=== PATIENT | male | born 1990 | race Caucasian/White ===

== ENCOUNTER 2020-05-06 01:24 | Inpatient (IN) | payer OTHER ==
[2020-05-06] VITALS (17 sets, daily range): BP systolic 123–146; BP diastolic 70–96
[~2020-05-06] VITALS: Ht 177.8 cm; Wt 77.1 kg
--- NOTE | 2020-05-06 01:37 | NUR ---
ED Nurse Note: pt ambulated into ed from home CO LRQ abdominal pain since 1200pm yesterday with 7/10 pain. Pt states that he has had this pain before but pain usually disappears on its own. Pt stated that he originally went to an urgent care for abdominal pain and was instructed to visit an ED. Pt aao x 4, ambulates with steady gait. VSS no ss of distress noted. will continue to monitor. ERMD at bedside. awaiting further orders.
--- NOTE | 2020-05-06 01:37 | Emergency Room Report ---
History of Present Illness General Chief Complaint: Abdominal Pain Source: Patient Present Illness HPI 29-year-old otherwise healthy male here with abdominal pain. Patient says earlier today he began to have periumbilical and generalized abdominal pain that has now migrated to the right lower quadrant. Is never had this before. Pain is dull in nature. Says he has felt nauseous and vomited one time earlier today. No fevers, chills, chest pain, palpitation, shortness of breath, back pain, other abdominal pain, nausea, vomiting, diarrhea, dysuria, hematuria. Allergies: Coded Allergies: No Known Allergies (Unverified , 05/06/20) COVID-19 Screening Contact w/high risk pt: No Experienced COVID-19 symptoms?: No COVID-19 Testing performed ROPEMAN: No Nursing Documentation-[facility] Past Medical History: No Stated History Review of Systems All Other Systems: negative except mentioned in HPI Physical Exam Vital Signs Date Time Temp Pulse Resp B/P (MAP) Pulse Ox O2 Delivery O2 Flow Rate FiO2 05/06/20 01:27 98.2 110 22 146/96 (113) 96 Room Air Sp02 EP Interpretation: reviewed, normal General Appearance: no apparent distress, alert, GCS 15, non-toxic Head: normocephalic, atraumatic Eyes: bilateral eye normal inspection, bilateral eye PERRL ENT: hearing grossly normal, normal pharynx, no angioedema, normal voice Neck: full range of motion, supple/symm/no masses Respiratory: chest non-tender, lungs clear, normal breath sounds, speaking full sentences Cardiovascular #1: regular rate, rhythm, no edema Cardiovascular #2: 2+ carotid (R), 2+ carotid (L), 2+ radial (R), 2+ radial (L) , 2+ dorsalis pedis (R), 2+ dorsalis pedis (L) Gastrointestinal: normal bowel sounds, soft, non-distended, no rebound, other - Positive Rovsing sign. Negative Ambrosio sign. Right lower quadrant tenderness on palpation with guarding. No rebound tenderness. Non-peritoneal Rectal: deferred Genitourinary: normal inspection, no CVA tenderness Musculoskeletal: back normal, normal range of motion, calf tenderness, gait/ station normal, non-tender Neurologic: alert, motor strength/tone normal, oriented x3, sensory intact, responsive, speech normal Psychiatric: judgement/insight normal, memory normal, mood/affect normal, no suicidal/homicidal ideation Reflexes: 3+ bicep (R), 3+ bicep (L), 3+ tricep (R), 3+ tricep (L), 3+ knee (R) , 3+ knee (L) Lymphatic: no adenopathy Medical Decision Making Diagnostic Impression: Primary Impression: Appendicitis ER Course Laboratory Tests Test 05/06/20 01:55 White Blood Count 20.1 K/UL (4.8-10.8) H Red Blood Count 5.76 M/UL (4.70-6.10) Hemoglobin 17.7 G/DL (14.2-18.0) Hematocrit 50.6 % (42.0-52.0) Mean Corpuscular Volume 88 FL (80-99) Mean Corpuscular Hemoglobin 30.7 PG (27.0-31.0) Mean Corpuscular Hemoglobin Concent 34.9 G/DL (32.0-36.0) Red Cell Distribution Width 11.4 % (11.6-14.8) L Platelet Count 371 K/UL (150-450) Mean Platelet Volume 6.7 FL (6.5-10.1) Neutrophils (%) (Auto) % (45.0-75.0) Lymphocytes (%) (Auto) % (20.0-45.0) Monocytes (%) (Auto) % (1.0-10.0) Eosinophils (%) (Auto) % (0.0-3.0) Basophils (%) (Auto) % (0.0-2.0) Differential Total Cells Counted 100 Neutrophils % (Manual) 78 % (45-75) H Lymphocytes % (Manual) 11 % (20-45) L Monocytes % (Manual) 9 % (1-10) Eosinophils % (Manual) 1 % (0-3) Basophils % (Manual) 1 % (0-2) Band Neutrophils 0 % (0-8) Platelet Estimate Adequate Platelet Morphology Normal Urine Color Brown Urine Appearance Clear Urine pH 5 (4.5-8.0) Urine Specific [place] 1.030 (1.005-1.035) Urine Protein 1+ (NEGATIVE) H Urine Glucose (UA) Negative (NEGATIVE) Urine Ketones 4+ (NEGATIVE) H Urine Blood Negative (NEGATIVE) Urine Nitrite Negative (NEGATIVE) Urine Bilirubin Negative (NEGATIVE) Urine Urobilinogen Normal MG/DL (0.0-1.0) Urine Leukocyte Esterase Negative (NEGATIVE) Urine RBC 0-2 /HPF (0 - 0) H Urine WBC 2-4 /HPF (0 - 0) Urine Squamous Epithelial Cells Occasional /LPF Urine Amorphous Sediment Few /LPF (NONE) H Urine Bacteria Moderate /HPF (NONE) H Urine Mucus Moderate /LPF (NONE/OCC) H Sodium Level 136 MMOL/L (136-145) Potassium Level 3.4 MMOL/L (3.5-5.1) L Chloride Level 97 MMOL/L (98-107) L Carbon Dioxide Level 24 MMOL/L (21-32) Anion Gap 15 mmol/L (5-15) Blood Urea Nitrogen 14 mg/dL (7-18) Creatinine 1.5 MG/DL (0.55-1.30) H Estimated Glomerular Filtration Rate 55.0 mL/min (>60) Glucose Level 157 MG/DL (74-106) H Calcium Level 9.6 MG/DL (8.5-10.1) Total Bilirubin 1.9 MG/DL (0.2-1.0) H Direct Bilirubin 0.3 MG/DL (0.0-0.3) Aspartate Amino Transferase (AST) 25 U/L (15-37) Alanine Aminotransferase (ALT) 90 U/L (12-78) H Alkaline Phosphatase 117 U/L (46-116) H Total Protein 9.0 G/DL (6.4-8.2) H Albumin 4.6 G/DL (3.4-5.0) Globulin 4.4 g/dL Albumin/Globulin Ratio 1.0 (1.0-2.7) Lipase 98 U/L (73-393) CT abdomen pelvis: Acute appendicitis of perforation or abscess 29-year-old male here with abdominal pain. CBC revealed a leukocytosis of 20, 000. CMP showed mildly elevated creatinine and was otherwise unremarkable. Patient had a CT abdomen pelvis with IV contrast performed which showed acute appendicitis. He received Zosyn and several doses of pain medications in the emergency department. There was no evidence of any complication such as abscess or perforation. I spoke with the on-call surgeon who said he will take the patient to the operating room later this morning. I expressed this information the patient who expressed understanding. He was afebrile and had otherwise normal vital signs in the emergency department. Patient admitted to [facility] [place] in stable condition. Last Vital Signs Date Time Temp Pulse Resp B/P (MAP) Pulse Ox O2 Delivery O2 Flow Rate FiO2 05/06/20 01:27 98.2 110 22 146/96 (113) 96 Room Air Scripts No Active Prescriptions or Reported Meds Bob Rojo M.D. May 06, 2020 01:37
[2020-05-06] MEDS ORDERED: Morphine Sulfate 4mg/ml Inj (IV USE ONLY) IVP ONE ×2 (02:00→04:15)
[2020-05-06] MEDS ORDERED: Omnipaque-300 100ml vial INJ PRN (02:00)
[2020-05-06 02:16] LABS: APPEARANCE,URINE CLEAR; BILIRUBIN, URINE NEGATIVE (NEGATIVE); COLOR,URINE BROWN; GLUCOSE, URINE (UA) NEGATIVE (NEGATIVE); KETONES,URINE 4+ (NEGATIVE); LEUKOCYTE ESTERASE ,URINE NEGATIVE (NEGATIVE); NITRITE,URINE NEGATIVE (NEGATIVE); PH,URINE 5 (4.5-8.0); PROTEIN,URINE 1+ (NEGATIVE); UROBILINOGEN,URINE NORMAL MG/DL (0.0-1.0)
--- NOTE | 2020-05-06 02:17 | NUR ---
ED Nurse Note: all medications administered, pt tolerated well no ss of distress noted. will continue to monitor.
[2020-05-06 02:21] LABS: HEMATOCRIT 50.6 % (42.0-52.0); HEMOGLOBIN 17.7 G/DL (14.2-18.0); MEAN CORPUSCULAR VOLUME 88 FL (80-99); PLATELET COUNT 371 K/UL (150-450); RED BLOOD COUNT 5.76 M/UL (4.70-6.10); RED CELL DISTRIBUTION WIDTH 11.4 % (11.6-14.8); WHITE BLOOD COUNT 20.1 K/UL (4.8-10.8)
[2020-05-06 02:28] LABS: ANION GAP 15 mmol/L (5-15); BLOOD UREA NITROGEN 14 mg/dL (7-18); CALCIUM 9.6 MG/DL (8.5-10.1); CARBON DIOXIDE 24 MMOL/L (21-32); CHLORIDE 97 MMOL/L (98-107); CREATININE 1.5 MG/DL (0.55-1.30); POTASSIUM 3.4 MMOL/L (3.5-5.1); SODIUM 136 MMOL/L (136-145)
[2020-05-06 02:38] LABS: ALANINE AMINOTRANSFERASE 90 U/L (12-78); ALBUMIN 4.6 G/DL (3.4-5.0); ALKALINE PHOSPHATASE 117 U/L (46-116); ASPARTATE AMINO TRANSFERASE 25 U/L (15-37); BILIRUBIN,TOTAL 1.9 MG/DL (0.2-1.0)
[2020-05-06 02:39] LABS: BILIRUBIN,DIRECT 0.3 MG/DL (0.0-0.3)
[2020-05-06] MEDS ORDERED: Piperacillin/Tazobactam 3.375 GM in NS 110 ML IVPB ONE (02:45)
[2020-05-06] MEDS ORDERED: Zosyn 3.375gm inj ONE (03:12)
--- NOTE | 2020-05-06 03:17 | NUR ---
ED Nurse Note: Pt returned frmo CT in stable condition, VSS No ss of distress noted. will continue to monitor.
--- NOTE | 2020-05-06 03:58 | Diagnostic Imaging Report ---
EXAM: CT Abdomen and Pelvis With Intravenous Contrast CLINICAL HISTORY: PAIN TECHNIQUE: Axial computed tomography images of the abdomen and pelvis with intravenous contrast. CTDI is 6.00 mGy and DLP is 326.40 mGy-cm. One or more of the following dose reduction techniques were used: automated exposure control, adjustment of the mA and/or kV according to patient size, use of iterative reconstruction technique. Coronal and sagittal reformatted images were created and reviewed. COMPARISON: No relevant prior studies available. FINDINGS: Lung bases: Unremarkable. No mass. No consolidation. Mediastinum: Small hiatal hernia. ABDOMEN: Liver: Extensive hypoattenuation of the liver with some areas of relative sparing. Overall findings suggest fatty infiltration. Gallbladder and bile ducts: Unremarkable. No calcified stones. No ductal dilation. Pancreas: Unremarkable. No mass. No ductal dilation. Spleen: Unremarkable. No splenomegaly. Adrenals: Unremarkable. No mass. Kidneys and ureters: Right renal 14 mm cyst with few faint septations. No hydronephrosis. Stomach and bowel: Unremarkable. No obstruction. No mucosal thickening. PELVIS: Appendix: The appendix is enlarged measuring up to 10.5 mm in diameter with surrounding inflammatory changes consistent with acute appendicitis. No evidence of abscess or extraluminal air. Bladder: Unremarkable. No mass. Reproductive: Unremarkable as visualized. ABDOMEN and PELVIS: Intraperitoneal space: See above. Small amount of free fluid. Bones/joints: No acute fracture. No dislocation. Soft tissues: Periumbilical fat-containing hernia. Vasculature: Unremarkable. No abdominal aortic aneurysm. Lymph nodes: Unremarkable. No enlarged lymph nodes. IMPRESSION: 1. The appendix is enlarged measuring up to 10.5 mm in diameter with surrounding inflammatory changes consistent with acute appendicitis. No evidence of abscess or actual air. 2. Right renal 14 mm cyst with few faint septations. No follow up necessary. 3. Extensive hypoattenuation of the liver with some areas of relative sparing. Overall findings suggest fatty infiltration. <MYCVCSECTION> Communications: 05/06/20 04:01 Call Doctor Regarding Appendicitis, called Dr. Bob Rojo on 05/06 04:01 (-07:00)
--- NOTE | 2020-05-06 05:13 | NUR ---
ED Nurse Note: pt resting in bed, VSS no ss of distress noted. will continue to monitor.
--- NOTE | 2020-05-06 06:47 | NUR ---
ED Nurse Note: Report given to FAB Salazar on MS unit.
--- NOTE | 2020-05-06 07:11 | NUR ---
ER DISCHARGE NOTE: Patient is cleared to be discharged to MS unit per ERMD, pt is aox4, 100% on room air, with stable vital signs. pt was able to verbalize understanding. pt is able to ambulate with steady gait. pt took all belongings. Report given to FAB Salazar on MS unit. Pt transferred to unit with 1 AXLE POLISHER.
[2020-05-06] MEDS ORDERED: Milk of Magnesia 30ml Ud ORAL PRN ×2 (07:30→11:15)
[2020-05-06] MEDS ORDERED: Morphine Sulfate 2mg/ml Inj(IV/IM USE ONLY) IVP PRN (07:30)
[2020-05-06] MEDS ORDERED: Morphine Sulfate 4mg/ml Inj (IV USE ONLY) IVP PRN ×2 (07:30→13:15)
[2020-05-06] MEDS ORDERED: Mylanta II UD 30ml ORAL PRN (07:30)
--- NOTE | 2020-05-06 07:30 | Pre-Procedure Note/Attestation ---
Pre-Procedure Note/Attestation Complete Prior to Procedure Procedure Narrative: laparoscopic appendectomy Indications for Procedure Pre-Operative Diagnosis: acute appendicitis Attestation I attest that I discussed the nature of the procedure; its benefits; risks and complications; and alternatives (and the risks and benefits of such alternatives ), prior to the procedure, with the patient (or the patient's legal customer assistance representative). I attest that, if there was a reasonable possibility of needing a blood transfusion, the patient (or the patient's legal customer assistance representative) was given the [facility] standardized written summary, pursuant to the [place] Blood Safety Act ([place] Health and Safety Code # 1645, as amended). I attest that I re-evaluated the patient just prior to the surgery and that there has been no change in the patient's H&P, except as documented below: Maroi Conti May 06, 2020 07:30
--- NOTE | 2020-05-06 07:31 | Consultation ---
History of Present Illness General Date patient seen: May 06, 2020 Reason for Hospitalization: Abdominal Pain Present Illness HPI This is a very pleasant 29-year-old male otherwise healthy that presents [facility] complaining of worsening abdominal pain. Patient states that yesterday afternoon he began to have right lower quadrant abdominal discomfort. Throughout the day pain worsened. In the evening he went to an urgent care at which time was potentially diagnosed with appendicitis and told to go to the hospital for evaluation. He came to [facility] and was identified to have a leukocytosis and CT scan consistent with acute appendicitis. Patient is admitted further care and management. Surgery was called to evaluate and assist with care. Patient seen, patient evaluated, chart reviewed. Pain 6 out of 10 without radiation lower abdomen right lower quadrant. Currently no nausea vomiting fever chills. Allergies: Coded Allergies: No Known Allergies (Unverified , 05/06/20) COVID-19 Screening Contact w/high risk pt: No Experienced COVID-19 symptoms?: No Medication History No Active Prescriptions or Reported Meds Patient History History Provided By: Patient Healthcare decision maker Resuscitation status Advanced Directive on File Past Medical/Surgical History Past Medical/Surgical History: (1) Appendicitis Review of Systems Review of Symptoms General ROS: no weight loss or fever Psychological ROS: no depression or mood changes, no memory loss Ophthalmic ROS: no visual changes or eye irritation ENT ROS: no nasal congestion, hearing loss, dizziness Allergy and Immunology ROS: no allergic symptoms or urticaria Hematological and Lymphatic ROS: no swollen glands, unusual bleeding or bruising Endocrine ROS: no polyuria, polydipsia, weight changes, temperature intolerance Respiratory ROS: no cough, shortness of breath, or wheezing Cardiovascular ROS: no chest pain or dyspnea on exertion Gastrointestinal ROS: ++ abdominal pain, no bright red blood in stool. Musculoskeletal ROS: no myalgias or arthralgias Neurological ROS: no TIA or stroke symptoms Dermatological ROS: no new or changing skin lesions, rashes or pruritis Physical Exam Physical Exam General appearance: alert, cooperative, no distress, appears stated age Head: Normocephalic, without obvious abnormality, atraumatic Eyes: conjunctivae/corneas clear. PERRL, EOM's intact. Fundi benign Throat: Lips, mucosa, and tongue normal. Teeth and gums normal Neck: supple, symmetrical, trachea midline, no adenopathy, thyroid: not enlarged, symmetric, no tenderness/mass/nodules, no carotid bruit and no JVD Lungs: clear to auscultation bilaterally Heart: regular rate and rhythm, S1, S2 normal, no murmur, click, rub or gallop Abdomen: soft, ++tender. Bowel sounds normal. No masses, no organomegaly Extremities: extremities normal, atraumatic, no cyanosis or edema Pulses: 2+ and symmetric Skin: Skin color, texture, turgor normal. No rashes or lesions Neurologic: Grossly normal Last 24 Hour Vital Signs Date Time Temp Pulse Resp B/P (MAP) Pulse Ox O2 Delivery O2 Flow Rate FiO2 05/06/20 07:11 98.3 85 16 141/82 100 Room Air 05/06/20 05:55 98.3 81 16 144/79 99 Room Air 05/06/20 04:41 98.3 05/06/20 03:25 98.3 79 16 145/86 98 Room Air 05/06/20 02:35 98.3 05/06/20 01:37 98.2 110 22 146/96 96 Room Air 05/06/20 01:37 110 22 Room Air 05/06/20 01:27 98.2 110 22 146/96 (113) 96 Room Air Intake and Output 05/05/20 05/06/20 19:00 07:00 Intake Total 1600 ml Output Total 700 ml Balance 900 ml Intake IV Total 1600 ml Output Urine Total 700 ml # Voids 2 Laboratory Tests Test 05/06/20 01:55 White Blood Count 20.1 K/UL (4.8-10.8) H Red Blood Count 5.76 M/UL (4.70-6.10) Hemoglobin 17.7 G/DL (14.2-18.0) Hematocrit 50.6 % (42.0-52.0) Mean Corpuscular Volume 88 FL (80-99) Mean Corpuscular Hemoglobin 30.7 PG (27.0-31.0) Mean Corpuscular Hemoglobin Concent 34.9 G/DL (32.0-36.0) Red Cell Distribution Width 11.4 % (11.6-14.8) L Platelet Count 371 K/UL (150-450) Mean Platelet Volume 6.7 FL (6.5-10.1) Neutrophils (%) (Auto) % (45.0-75.0) Lymphocytes (%) (Auto) % (20.0-45.0) Monocytes (%) (Auto) % (1.0-10.0) Eosinophils (%) (Auto) % (0.0-3.0) Basophils (%) (Auto) % (0.0-2.0) Differential Total Cells Counted 100 Neutrophils % (Manual) 78 % (45-75) H Lymphocytes % (Manual) 11 % (20-45) L Monocytes % (Manual) 9 % (1-10) Eosinophils % (Manual) 1 % (0-3) Basophils % (Manual) 1 % (0-2) Band Neutrophils 0 % (0-8) Platelet Estimate Adequate Platelet Morphology Normal Urine Color Brown Urine Appearance Clear Urine pH 5 (4.5-8.0) Urine Specific [place] 1.030 (1.005-1.035) Urine Protein 1+ (NEGATIVE) H Urine Glucose (UA) Negative (NEGATIVE) Urine Ketones 4+ (NEGATIVE) H Urine Blood Negative (NEGATIVE) Urine Nitrite Negative (NEGATIVE) Urine Bilirubin Negative (NEGATIVE) Urine Urobilinogen Normal MG/DL (0.0-1.0) Urine Leukocyte Esterase Negative (NEGATIVE) Urine RBC 0-2 /HPF (0 - 0) H Urine WBC 2-4 /HPF (0 - 0) Urine Squamous Epithelial Cells Occasional /LPF Urine Amorphous Sediment Few /LPF (NONE) H Urine Bacteria Moderate /HPF (NONE) H Urine Mucus Moderate /LPF (NONE/OCC) H Sodium Level 136 MMOL/L (136-145) Potassium Level 3.4 MMOL/L (3.5-5.1) L Chloride Level 97 MMOL/L (98-107) L Carbon Dioxide Level 24 MMOL/L (21-32) Anion Gap 15 mmol/L (5-15) Blood Urea Nitrogen 14 mg/dL (7-18) Creatinine 1.5 MG/DL (0.55-1.30) H Estimat Glomerular Filtration Rate 55.0 mL/min (>60) Glucose Level 157 MG/DL (74-106) H Calcium Level 9.6 MG/DL (8.5-10.1) Total Bilirubin 1.9 MG/DL (0.2-1.0) H Direct Bilirubin 0.3 MG/DL (0.0-0.3) Aspartate Amino Transf (AST/SGOT) 25 U/L (15-37) Alanine Aminotransferase (ALT/SGPT) 90 U/L (12-78) H Alkaline Phosphatase 117 U/L (46-116) H Total Protein 9.0 G/DL (6.4-8.2) H Albumin 4.6 G/DL (3.4-5.0) Globulin 4.4 g/dL Albumin/Globulin Ratio 1.0 (1.0-2.7) Lipase 98 U/L (73-393) Height (Feet): 5 Height (Inches): 10.00 Weight (Pounds): 170 Medications Current Medications Medications (Trade) Dose Ordered Sig/Yelitza Route PRN Reason Start Time Stop Time Status Last Admin Dose Admin Barium Sulfate (Readi-Cat 2) 450 ml NOW PRN ORAL Radiology Procedure 05/06/20 02:00 05/08/20 01:52 Iohexol (OMNIPAQUE-300 100ml) 100 ml NOW PRN INJ Radiology Procedure 05/06/20 02:00 05/08/20 01:52 Assessment/Plan Problem List: (1) Appendicitis Assessment & Plan: 29M acute appendicitis afebrile HD stable leukocytosis exam with focal RLQ tenderness also noted incarcerated ventral umbilical hernia Care plan was discussed patient in detail at bedside. Recommend lap appendectomy possible open. Will repair incarcerated ventral hernia at the same time. Patient expressed understanding. Consent obtained. npo iv fluids abx consent or today ABDOMEN: Liver: Extensive hypoattenuation of the liver with some areas of relative sparing. Overall findings suggest fatty infiltration. Gallbladder and bile ducts: Unremarkable. No calcified stones. No ductal dilation. Pancreas: Unremarkable. No mass. No ductal dilation. Spleen: Unremarkable. No splenomegaly. Adrenals: Unremarkable. No mass. Kidneys and ureters: Right renal 14 mm cyst with few faint septations. No hydronephrosis. Stomach and bowel: Unremarkable. No obstruction. No mucosal thickening. PELVIS: Appendix: The appendix is enlarged measuring up to 10.5 mm in diameter with surrounding inflammatory changes consistent with acute appendicitis. No evidence of abscess or extraluminal air. Bladder: Unremarkable. No mass. Reproductive: Unremarkable as visualized. ABDOMEN and PELVIS: Intraperitoneal space: See above. Small amount of free fluid. Bones/joints: No acute fracture. No dislocation. Soft tissues: Periumbilical fat-containing hernia. Vasculature: Unremarkable. No abdominal aortic aneurysm. Lymph nodes: Unremarkable. No enlarged lymph nodes. IMPRESSION: 1. The appendix is enlarged measuring up to 10.5 mm in diameter with surrounding inflammatory changes consistent with acute appendicitis. No evidence of abscess or actual air. 2. Right renal 14 mm cyst with few faint septations. No follow up necessary. 3. Extensive hypoattenuation of the liver with some areas of relative sparing. Overall findings suggest fatty infiltration. ICD Codes: K37 - Unspecified appendicitis SNOMED: [id number] Mario Conti May 06, 2020 07:31
--- NOTE | 2020-05-06 07:40 | NUR ---
NURSE NOTES: Patient is in bed awake and able to verbalize needs. Stable. Breathing is even and unlabored. No visible signs of distress noted. Patient instructed to use call light for assistance, verbalized understanding. All safety measures provided. Will continue to monitor.
[2020-05-06] MEDS ORDERED: LR 1000ml 1,000 ML IVLG SCH (08:58)
[2020-05-06] MEDS ORDERED: oxyCODONE HCL/Acetaminophen 5/325mg ORAL PRN (09:00)
[2020-05-06] MEDS ORDERED: LORazepam Inj 2mg/ml 1ml IV PRN (09:00)
[2020-05-06] MEDS ORDERED: Hydromorphone 0.5mg/0.5ml inj IVP PRN (09:00)
[2020-05-06] MEDS ORDERED: fentaNYL 100 mcg/2 mL IV PRN (09:00)
[2020-05-06] MEDS ORDERED: Atropine Sulfate 0.4mg/ml inj IVP PRN (09:00)
[2020-05-06] MEDS ORDERED: Midazolam 2mg/2ml Inj IVP PRN (09:00)
[2020-05-06] MEDS ORDERED: Docusate 100mg cap ORAL SCH (09:00)
[2020-05-06] MEDS ORDERED: HYDROcodone/Acetamin 7.5/325 tab ORAL PRN (09:00)
[2020-05-06] MEDS ORDERED: Labetalol 5mg/ml 20ml vial IV PRN (09:00)
[2020-05-06] MEDS ORDERED: HYDROcodone/Acetamin 5/325 tab ORAL PRN ×2 (09:00→11:15)
[2020-05-06] MEDS ORDERED: Ketorolac 30mg Inj IV PRN ×2 (09:00)
[2020-05-06] MEDS ORDERED: DiphenhydrAMINE 50mg/ml Inj IVP PRN (09:00)
[2020-05-06] MEDS ORDERED: Metoclopramide 10mg/2ml Inj IVP PRN (09:00)
[2020-05-06] MEDS ORDERED: Meperidine 25mg/0.5ml Inj (FOR RIGORS ONLY) IV PRN (09:00)
--- NOTE | 2020-05-06 09:06 | Anethesia Preoperative Eval ---
Anesthesia Pre-op PMH/ROS General Date of Evaluation: May 06, 2020 Time of Evaluation: 09:36 Anesthesiologist: Essence ASA Score: ASA 2 - Emergency Mallampati Score Class I : Soft palate, uvula, fauces, pillars visible Class II: Soft palate, uvula, fauces visible Class III: Soft palate, base of uvula visible Class IV: Only hard plate visible Mallampati Classification: Class I Surgeon: Sushila Diagnosis: Acute Appendicitis Surgical Procedure: Laparoscopic Appendectomy Anesthesia History: none Family History: no anesthesia problems Allergies: Coded Allergies: No Known Allergies (Unverified , 05/06/20) Medications: see eMAR Patient NPO?: Yes Past Medical History Cardiovascular: Reports: HTN Gastrointestinal/Genitourinary: Reports: other - Acute Appendicitis Anesthesia Pre-op Phys. Exam Physician Exam Last Vital Signs Date Time Temp Pulse Resp B/P (MAP) Pulse Ox O2 Delivery O2 Flow Rate FiO2 05/06/20 07:43 Room Air 05/06/20 07:11 98.3 85 16 141/82 100 Constitutional: NAD Neurologic: CN 2-12 intact Cardiovascular: RRR Respiratory: CTA Gastrointestinal: S/NT/ND Airway Exam Mallampati Score: Class I MO: full ROM: full Teeth: missing, intact Anesthesia Pre-op A/P Labs Hematology Test 05/06/20 01:55 White Blood Count 20.1 K/UL (4.8-10.8) H Red Blood Count 5.76 M/UL (4.70-6.10) Hemoglobin 17.7 G/DL (14.2-18.0) Hematocrit 50.6 % (42.0-52.0) Mean Corpuscular Volume 88 FL (80-99) Mean Corpuscular Hemoglobin 30.7 PG (27.0-31.0) Mean Corpuscular Hemoglobin Concent 34.9 G/DL (32.0-36.0) Red Cell Distribution Width 11.4 % (11.6-14.8) L Platelet Count 371 K/UL (150-450) Mean Platelet Volume 6.7 FL (6.5-10.1) Neutrophils (%) (Auto) % (45.0-75.0) Lymphocytes (%) (Auto) % (20.0-45.0) Monocytes (%) (Auto) % (1.0-10.0) Eosinophils (%) (Auto) % (0.0-3.0) Basophils (%) (Auto) % (0.0-2.0) Differential Total Cells Counted 100 Neutrophils % (Manual) 78 % (45-75) H Lymphocytes % (Manual) 11 % (20-45) L Monocytes % (Manual) 9 % (1-10) Eosinophils % (Manual) 1 % (0-3) Basophils % (Manual) 1 % (0-2) Band Neutrophils 0 % (0-8) Platelet Estimate Adequate Platelet Morphology Normal Coagulation Test 05/06/20 08:50 Prothrombin Time Pending Prothromb Time International Ratio Pending Activated Partial Thromboplast Time Pending Chemistry Test 05/06/20 01:55 Sodium Level 136 MMOL/L (136-145) Potassium Level 3.4 MMOL/L (3.5-5.1) L Chloride Level 97 MMOL/L (98-107) L Carbon Dioxide Level 24 MMOL/L (21-32) Anion Gap 15 mmol/L (5-15) Blood Urea Nitrogen 14 mg/dL (7-18) Creatinine 1.5 MG/DL (0.55-1.30) H Estimat Glomerular Filtration Rate 55.0 mL/min (>60) Glucose Level 157 MG/DL (74-106) H Calcium Level 9.6 MG/DL (8.5-10.1) Total Bilirubin 1.9 MG/DL (0.2-1.0) H Direct Bilirubin 0.3 MG/DL (0.0-0.3) Aspartate Amino Transf (AST/SGOT) 25 U/L (15-37) Alanine Aminotransferase (ALT/SGPT) 90 U/L (12-78) H Alkaline Phosphatase 117 U/L (46-116) H Total Protein 9.0 G/DL (6.4-8.2) H Albumin 4.6 G/DL (3.4-5.0) Globulin 4.4 g/dL Albumin/Globulin Ratio 1.0 (1.0-2.7) Lipase 98 U/L (73-393) Risk Assessment & Plan Assessment: ASA 2E Plan: GA, SED, GlideScope Status Change Before Surgery: No Pre-Antibiotics Dru Gram Ancef IV Given Within 1 Hr of Incision: Yes Time Given: 10:01 Celestine Lowry MD May 06, 2020 09:06
[2020-05-06] MEDS ORDERED: Acetaminophen (Non formulary) 100 ML IV ONE (09:15)
--- NOTE | 2020-05-06 09:18 | Immediate Post-Op Evaluation ---
Immediate Post-Op Evalulation Immediate Post-Op Evalulation Procedure: Laparoscopic Appendectomy Date of Evaluation: May 06, 2020 Time of Evaluation: 11:19 IV Fluids: 800 LR Blood Products: 0 Estimated Blood Loss: 15 Urinary Output: 0 Blood Pressure Systolic: 138 Blood Pressure Diastolic: 70 Pulse Rate: 77 Respiratory Rate: 16 O2 Sat by Pulse Oximetry: 100 Temperature (Fahrenheit): 98.1 Pain Score (1-10): 2 Nausea: No Vomiting: No Complications 0 Patient Status: awake, reacts, patent, extubated, none Hydration Status: adequate Dru Gram Ancef IV Given Within 1 Hr of Incision: Yes Time Given: 10:01 Celestine Lowry MD May 06, 2020 09:18
--- NOTE | 2020-05-06 09:23 | 48 Hour Post Anesthesia Eval ---
Post Anesthesia Evaluation Procedure: Laparoscopic Appendectomy Date of Evaluation: May 06, 2020 Time of Evaluation: 13:32 Blood Pressure Systolic: 141 0: 82 Pulse Rate: 83 Respiratory Rate: 18 Temperature (Fahrenheit): 98.1 O2 Sat by Pulse Oximetry: 100 Airway: patent Nausea: No Vomiting: No Pain Intensity: 2 Hydration Status: adequate Cardiopulmonary Status: Stable Mental Status/LOC: patient returned to baseline Follow-up Care/Observations: 0 Post-Anesthesia Complications: 0 Follow-up care needed: N/A Celestine Lowry MD May 06, 2020 09:23
[2020-05-06] MEDS ORDERED: Sodium Chloride 10ml vial INJ ONE (09:25)
[2020-05-06] MEDS ORDERED: Lidocaine 1% MPF 10mg/ml 5ml ONE (09:25)
[2020-05-06] MEDS ORDERED: NS Irrig 1000ml ONE (09:30)
[2020-05-06] MEDS ORDERED: Rocuronium Bromide 50mg/5ml Inj IV ONE (09:30)
[2020-05-06] MEDS ORDERED: Sterile Water Irrig 1000ml IRRIG ONE (09:30)
[2020-05-06] MEDS ORDERED: LR 1000ml ONE (09:30)
[2020-05-06] MEDS ORDERED: Neostigmine 1mg/ml 10ml Inj ONE (09:30)
--- NOTE | 2020-05-06 09:40 | NUR ---
NURSE NOTES: Patient taken downstairs. All belongings in room.
[2020-05-06] MEDS ORDERED: Glycopyrrolate 0.2mg/ml 1ml Vial ONE (10:25)
[2020-05-06] MEDS ORDERED: NS Irrig 1000ml IRRIG ONE (10:29)
[2020-05-06] MEDS ORDERED: D5 1/2NS w/KCl 20mEq 1,000 ML IV SCH (10:30)
--- NOTE | 2020-05-06 10:59 | Brief Operative Note ---
Immediate Post Operative Note Operative Note Pre-op Diagnosis: acute appendicitis Procedure: lap appy Post-op Diagnosis: same as pre-op Surgeon: subha Anesthesiologist: sarah Anesthesia: general, local Specimen: yes Complications: none Condition: stable Fluids: see records Estimated Blood Loss: minimal Implant(s) used?: No Mario Conti May 06, 2020 10:59
--- NOTE | 2020-05-06 11:00 | NUR ---
PT Note Acknowledged order for PT eval/tx. Was unable to see patient as he went for surgery.
[2020-05-06] MEDS ORDERED: HYDROcodone/Acetamin 10/325 tab ORAL PRN (11:15)
--- NOTE | 2020-05-06 12:33 | NUR ---
NURSE NOTES: Patient arrived on unit, AOx4, able to verbalize needs. Stable. Breathing is even and unlabored, on 2L oxygen via nc. No visible signs of distress noted. VSS. Patient instructed to use call light for assistance, verbalized understanding. Surgical site c/d/i. All safety measures provided. Will continue to monitor.
--- NOTE | 2020-05-06 13:30 | NUR ---
NURSE NOTES: Patient tolerated clear liquid diet and full liquid diet. No c/o n/v, abdominal pain or discomfort.
--- NOTE | 2020-05-06 14:00 | NUR ---
NURSE NOTES: Patient voided sydney urine.
--- NOTE | 2020-05-06 14:20 | History & Physical ---
History and Physical History & Physicial dictated [id number] Sagar Steele MD May 06, 2020 14:20
[2020-05-06] MEDS: Piperacillin/Tazobactam 3.375 GM in NS 110 ML IVPB SCH ×2 (15:00→21:53)
--- NOTE | 2020-05-06 15:21 | NUR ---
CASE MANAGEMENT: INITIAL REVIEW 29YR OLD MALE FROM HOME CC:ABDOMINAL PAIN SI:APPENDICITIS . ABDOMINAL PAIN 98.3 110 22 146/96 96% ON RA WBC 20.1 K+3.4 CL-97 CREAT 1.5 BG 157 T.CUCA 1.9 ALT 90 IS:IVF NS BOLUS X3 IV ZOSYN X1 IV MORPHINE X2 IV TORADOL IV D5@100ML/HR CT ABD/PEL-The appendix is enlarged measuring up to 10.5 mm in diameter with surrounding inflammatory changes consistent with acute appendicitis. No evidence of abscess or actual air. Right renal 14 mm cyst with few faint septations. No follow up necessary. Extensive hypoattenuation of the liver with some areas of relative sparing. Overall findings suggest fatty infiltration. IN SURGERY NOW ACUTE APPENDICITIS \: 3E MED SURG UNIT DCP: HOME WHEN STABLE PLAN: ADVANCE DIET TOLERATED ENCOURAGE INCENTIVE SPIROMETER DVT PROPHYLAXIS SCD'S
--- NOTE | 2020-05-06 16:00 | Operative Note - Dictated ---
DATE OF OPERATION: 05/06/2020 PREOPERATIVE DIAGNOSES: 1. Incarcerated ventral umbilical hernia. 2. Acute appendicitis. POSTOPERATIVE DIAGNOSES: 1. Incarcerated ventral umbilical hernia. 2. Acute appendicitis. OPERATION PERFORMED: 1. Laparoscopic appendectomy. 2. Open repair of incarcerated ventral hernia. ATTENDING SURGEON: Mario Conti MD. LENS ASSISTANT: None. ANESTHESIOLOGIST: Celestine Lowry MD. 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 ESTIMATED BLOOD LOSS: Minimal. IV FLUIDS: Please see anesthesia records. COMPLICATIONS: None. DRAINS: None. COUNTS: Sponge and needle counts were correct x2. WOUND CLASSIFICATION: Class 3. SPECIMENS: 1. Ventral umbilical hernia sac contents. 2. Appendix. ANTIBIOTICS: The patient given Zosyn IV one hour prior to seen in the emergency department. INDICATIONS FOR PROCEDURE: This is a very pleasant 29-year-old male, who presented to, he then began to develop abdominal pain, a day prior to admission, which was worsening, went to Urgent Care and diagnosed with acute appendicitis and came to the emergency department at [facility] for [facility] evaluation. CT scan consistent with appendicitis as well as leukocytosis and abdominal examination with localized right lower quadrant peritonitis. On examination, the patient was also identified to have a bulge in his supraumbilical area ventral. On palpation, this was identified to be a hernia with incarcerated contents that could not be reduced. Given planned laparoscopic surgery and port site utilization for minimization of scar, care plan was to place port in the umbilicus and given his incarcerated hernia that would need to be reduced and repaired. The patient expressed understanding. Consent was obtained. OPERATIVE NOTE: The patient was taken to the operating room and placed on the operating table in supine position with bilateral arms out. All bony prominences were well padded. SCDs placed. Preoperative time-out taken to identify the patient, procedure, operative staff, and surgical staff. The patient has already given IV antibiotics prior to entering the operating room. No Dubon catheter was inserted given the patient voided prior. General anesthesia was induced. The patient was intubated. The left arm was tucked. All bony prominences were well padded. Abdomen was clipped, prepped, and draped in the standard surgical fashion. The supraumbilical incarcerated ventral hernia was identified and the port site was planned for this location. Therefore, the umbilical incision was made and once this was identified, incarcerated fat was noted. The incarcerated fat was dissected out to the fascia where the small ventral umbilical hernia was identified. The fatty contents and sac were divided and sent to pathology for review. The fascial edges were clearly identified, freshened up and the fascia was extended to allow a 12 mm port. A 12 mm Heather trocar was inserted under direct visualization without complication. Entry of the abdomen was without complication. The abdomen was insufflated to 12 to 15 mmHg. Laparoscope was inserted. The abdomen was inspected. No injury from initial trocar placement noted. Secondary trocars placed under direct visualization beginning with a 12 mm left lower quadrant followed by 5 mm suprapubic. The abdomen was inspected. The liver was without significant abnormalities, but did have blunted edges little fatty. The portions of the colon, intestines identified, were otherwise normal as well as the stomach. No inguinal hernias were identified. There was some adhesions of the sigmoid colon to the left lower quadrant peritoneum. Laparoscopic grasper was used and the cecum was identified and followed to the where the base of the appendix noted. The appendix was inflamed, but not perforated. The appendix was dissected out and a window was made between the base of the appendix and mesoappendix. The mesoappendix was divided without complication. Staple line was required two clips for hemostasis. Mesoappendix was identified and divided using a laparoscopic linear stapler in similar fashion. Laparoscopic clips were used for hemostasis was necessary. The appendix placed in endoscopic retrieval bag and removed from the umbilical port site. The pelvis and right lower quadrant had some murky, serous fluid, which was evacuated, irrigated and suctioned out. Good hemostasis noted from the appendiceal base and mesoappendix at the end of the procedure. No bleeding identified. Intact without complication with the staple lines. At this time, we began the conclusion of our procedure. The left lower quadrant and umbilical and suprapubic trocars were removed. The abdomen was desufflated. The umbilical trocar site was removed. The umbilical trocar site fascia with edges were freshened up and the hernia had been in the hernia sac and contents were ligated and divided, was reapproximated using [id number] #0 Vicryl sutures. The left lower quadrant port site fascia was reapproximated using [id number] #0 Vicryl sutures. Skin incisions were approximated using 4-0 Monocryl subcuticular interrupted sutures. Skin glue and Steri-Strips were applied. The patient tolerated the procedure well, was extubated, taken to postanesthetic care in stable condition. Of note, local anesthetic was used throughout the procedure, incision site and port sites for the patient's comfort. Mario Conti M.D. DR: SINDHU JOB#: [id number] CC:
[2020-05-06] MEDS: Docusate 100mg cap ORAL SCH (18:17)
[2020-05-06] MEDS: Morphine Sulfate 2mg/ml Inj(IV/IM USE ONLY) IVP PRN (18:18)
--- NOTE | 2020-05-06 19:30 | NUR ---
NURSE NOTES: Receive a report from FAB Garza. Round is done. Pt is awake and alert. No acute distress noted. Surgical sites are clean. I/S at bed side. Encourage to use I/S every hour for post-op complications. Call light within reach. Will continue to monitor.
--- NOTE | 2020-05-06 19:30 | History and Physical Report ---
DATE OF ADMISSION: 05/06/2020 CHIEF COMPLAINT: Abdominal pain. HISTORY OF PRESENT ILLNESS: This is a very pleasant 29-year-old white male who was in his usual state of health until yesterday when he started to have first some epigastric pain, which then travelled to the right lower quadrant. It became severe and finally came to the emergency room. The CT scan showed that he had acute appendicitis. The patient was admitted for further care. He just had appendectomy by Dr. Conti this morning and he is postop now. PAST MEDICAL HISTORY: Unremarkable. No history of diabetes, hypertension. No history of heart problems. MEDICATIONS: None. SOCIAL HISTORY: No history of smoking or alcohol abuse. The patient lives at home by himself. ALLERGIES: No known drug allergies. REVIEW OF SYSTEMS: Noncontributory, except above. PHYSICAL EXAMINATION: GENERAL: The patient is a pleasant male, in no acute distress. VITAL SIGNS: Blood pressure is 136/87, pulse 89, respirations 18, and temperature 98.4. HEENT: Mayo conjunctivae. Anicteric sclerae. NECK: Supple. LUNGS: Clear to auscultation. HEART: S1, S2 without murmurs or rubs. ABDOMEN: Soft, somewhat tender around the surgical site. EXTREMITIES: No cyanosis or edema. LABORATORY FINDINGS: [place] [address], hematocrit 50.6, hemoglobin 17.7, and platelets 271,000. Chemistry panel shows sodium 136, potassium 3.4, chloride 97, carbon dioxide 24, BUN is 14, creatinine 1.5. UA showed moderate bacteria, but only 2 to 4 WBCs per high-power field. ASSESSMENT: This is a 29-year-old white male was admitted with acute appendicitis. He just had his appendectomy this morning. He is doing well. He was started on some liquid diet by Dr. Conti. PLAN: The patient is already on Zosyn, which we will continue. His diet will be advanced per Dr. Conti, possibly discharged in a day or 2. Sagar Steele M.D. DR: Kirill JOB#: [id number] CC:
--- NOTE | 2020-05-06 19:34 | NUR ---
NURSE HAND-OFF: Important Events on Shift:s/p surgery Patient Status: stable Diet: regular Pending Orders: n/a Pending Results/Labs:n/a Pending MD notification:n/a Latest Vital Signs: Temperature 98.4 , Pulse 95 , B/P 137 /89 , Respiratory Rate 21 , O2 SAT 99 , Nasal Cannula, O2 Flow Rate 3 . Vital Sign Comment: n/a Latest Andrews Fall Score: 50 Fall Risk: High Risk Safety Measures: Call light Within Reach, Side Rails Side Rails x2, Bed position Low and Locked. Fall Precautions: Report given to Denisa SANON.
[2020-05-07] VITALS: BP 135/73
[2020-05-07] MEDS: Morphine Sulfate 2mg/ml Inj(IV/IM USE ONLY) IVP PRN (00:04)
--- NOTE | 2020-05-07 00:05 | NUR ---
NURSE NOTES: No acute distress noted but pain is increasing as 5/10. Given prn pain medication as ordered. Explain for S/Es. Done self-voiding at bathroom with steady gait. Will continue to monitor.
[2020-05-07 04:30] VITALS: BP 122/74
[2020-05-07] MEDS: Piperacillin/Tazobactam 3.375 GM in NS 110 ML IVPB SCH (05:54)
[2020-05-07 05:57] LABS: HEMATOCRIT 43.6 % (42.0-52.0); HEMOGLOBIN 15.1 G/DL (14.2-18.0); MEAN CORPUSCULAR VOLUME 89 FL (80-99); PLATELET COUNT 296 K/UL (150-450); RED BLOOD COUNT 4.88 M/UL (4.70-6.10); RED CELL DISTRIBUTION WIDTH 11.5 % (11.6-14.8); WHITE BLOOD COUNT 18.4 K/UL (4.8-10.8)
[2020-05-07 06:08] LABS: ANION GAP 11 mmol/L (5-15); BLOOD UREA NITROGEN 11 mg/dL (7-18); CALCIUM 8.9 MG/DL (8.5-10.1); CARBON DIOXIDE 26 MMOL/L (21-32); CHLORIDE 101 MMOL/L (98-107); CREATININE 1.2 MG/DL (0.55-1.30); POTASSIUM 4.1 MMOL/L (3.5-5.1); SODIUM 138 MMOL/L (136-145)
--- NOTE | 2020-05-07 07:30 | NUR ---
NURSE HAND-OFF: Important Events on Shift:[pain on surgical sites] Patient Status: [stable] Diet: [regular diet] Pending Orders: [] Pending Results/Labs:[] Pending MD notification:[] Latest Vital Signs: Temperature 98.1 , Pulse 75 , B/P 122 /74 , Respiratory Rate 18 , O2 SAT 98 , Room Air, O2 Flow Rate 3 . Vital Sign Comment: [] Latest Andrews Fall Score: 20 Fall Risk: Low Risk Safety Measures: Call light Within Reach, Bed Alarm , Side Rails Side Rails x2, Bed position Low and Locked. Fall Precautions: Patient Fall Education Leaving a written Report given to [FAB Garza]. Pain had one time pain medication overnight. No S/Es. Afebrile. Surgical sites are clean.
--- NOTE | 2020-05-07 07:45 | NUR ---
NURSE NOTES:REPORT GIVEN BY NIGHT RN(LAYLA).PT.EATING BREAKFAST ON ROUNDS,IN GOOD SPIRIT,NO C/O PAIN.
[2020-05-07 08:00] VITALS: BP 127/86
[2020-05-07] MEDS: Docusate 100mg cap ORAL SCH (09:06)
--- NOTE | 2020-05-07 11:16 | General Progress Note ---
Assessment/Plan Problem List: (1) Appendicitis ICD Codes: K37 - Unspecified appendicitis SNOMED: [id number] Assessment/Plan: DC today after seen by Dr Bonilla Subjective Allergies: Coded Allergies: No Known Allergies (Unverified , 05/06/20) Subjective feels ok Objective Last 24 Hour Vital Signs Date Time Temp Pulse Resp B/P (MAP) Pulse Ox O2 Delivery O2 Flow Rate FiO2 05/07/20 09:00 Room Air 05/07/20 08:00 98.8 100 18 127/86 (100) 97 05/07/20 04:30 98.1 75 18 122/74 (90) 98 05/07/20 00:00 98.3 88 18 135/73 (93) 99 05/06/20 21:00 Room Air 05/06/20 20:00 99.2 96 18 132/89 (103) 98 05/06/20 16:00 98.4 95 21 137/89 (105) 99 05/06/20 13:24 98.4 89 18 136/87 (103) 97 05/06/20 13:08 98.3 90 18 130/89 (103) 97 05/06/20 12:38 98.4 87 18 123/85 (98) 96 05/06/20 12:12 97.8 05/06/20 12:05 97.8 89 23 139/83 98 Nasal Cannula 3 05/06/20 11:50 94 24 145/89 98 Nasal Cannula 3 05/06/20 11:45 95 22 126/83 98 Nasal Cannula 3 05/06/20 11:30 84 21 126/83 100 Simple Mask 6 05/06/20 11:20 75 24 138/79 98 Simple Mask 6 Intake and Output 05/06/20 05/07/20 19:00 07:00 Intake Total 900 ml 500 ml Output Total 15 ml Balance 885 ml 500 ml Intake Oral 500 ml IV Total 900 ml Estimated Blood Loss 15 ml # Voids 3 Laboratory Tests 05/07/20 05:00: White Blood Count 18.4H, Red Blood Count 4.88, Hemoglobin 15.1, Hematocrit 43.6 , Mean Corpuscular Volume 89, Mean Corpuscular Hemoglobin 30.9, Mean Corpuscular Hemoglobin Concent 34.5, Red Cell Distribution Width 11.5L, Platelet Count 296, Mean Platelet Volume 6.5, Neutrophils (%) (Auto) , Lymphocytes (%) (Auto) , Monocytes (%) (Auto) , Eosinophils (%) (Auto) , Basophils (%) (Auto) , Differential Total Cells Counted 100, Neutrophils % ( Manual) 75, Lymphocytes % (Manual) 16L, Monocytes % (Manual) 9, Eosinophils % ( Manual) 0, Basophils % (Manual) 0, Band Neutrophils 0, Platelet Estimate Adequate, Platelet Morphology Normal, Red Blood Cell Morphology Normal, Sodium Level 138, Potassium Level 4.1, Chloride Level 101, Carbon Dioxide Level 26, Anion Gap 11, Blood Urea Nitrogen 11, Creatinine 1.2, Estimat Glomerular Filtration Rate > 60, Glucose Level 116H, Calcium Level 8.9 Height (Feet): 5 Height (Inches): 10.00 Weight (Pounds): 170 Cardiovascular: normal rate Respiratory/Chest: lungs clear Abdomen: soft Sagar Steele MD May 07, 2020 11:16
--- NOTE | 2020-05-07 12:06 | NUR ---
CASE MANAGEMENT: REVIEW 05/07/20 SI: S/P LAPAROSCOPIC APPENDICITIS AND OPEN REPAIR OF INCARCERATED VENTRAL HERNIA ABDOMINAL PAIN 98.8 100 18 [id number] 97% ON RA WBC 18.4 BG 116 IS:IV ZOSYN TID IV MORPHINE SULFATE \: 3E MED SURG UNIT DCP: HOME WHEN STABLE PLAN: ADVANCE DIET TOLERATED DC PLANNING HOME WHEN STABLE
--- NOTE | 2020-05-07 12:55 | NUR ---
NURSE NOTES: Patient discharged home as ordered. Stable. Denies pain or SOB. Patient was assessed by surgeon prior to discharge. Patient was given discharge instructions by Dr. Conti, all questions and concerns addressed by MD. Teaching reinforced by RN. Surgical site c/d/i. Patient has prescription and verbalized that he will fill medication at pharmacy. Patient has all belongings. No IV access. Skin is c/d/i. Patient assisted downstairs to be picked up by girlfriend.
--- NOTE | 2020-05-07 16:24 | NUR ---
PT Note PT ksenia completed; c/o abdominal incisional pain with supine<>sitting activity. Patient was instructed on log rolling techniques and come to/from sitting through sidelying. Pt was able to demonstrate this technique well through return demo. States that pain was less with this technique. Patient does not require further PT intervention at this time. Will DC physical therapy. Addendum: 05/07/20 at 1625 by ADRIAN WRIGHT PT Amended: Links added.
--- NOTE | 2020-05-09 09:01 | Discharge Summary ---
Discharge Summary Discharge Summary _ DATE OF ADMISSION: 05/06/2020 DATE OF DISCHARGE: 05/07/2020 DISCHARGED BY: Dr. Sagar Steele REASON FOR ADMISSION: 29 years old male with unremarkable past medical history, presented with epigastric pain, traveling to the right lower quadrant. Pain became severe, and he went to emergency department for further evaluation. CT scan of the abdomen and pelvis revealed acute appendicitis. No evidence of abscess or actual air. Patient was admitted for surgical intervention. Laboratory work-up revealed leukocytosis with WBC 20.1, stable hemoglobin and hematocrit. Rapid COVID-19 was negative. [facility] COURSE: Patient undergone laparoscopic appendectomy as well as open repair of incarcerated ventral hernia. Postoperative course of recovery was uneventful. Pain management was addressed as needed. Patient was on empiric antibiotic. Bowel regimen instituted. Patient slowly started on diet as tolerated. Antiemetic were on board as needed. Ambulation was encouraged. Patient was able to tolerate diet. Pain was controlled. Leukocytosis trending down. Patient ambulated without difficulties. Patient clinically stabilized and was ready for discharge home. FINAL DIAGNOSES: Acute appendicitis Incarcerated ventral umbilical hernia Status post laparoscopic appendectomy, open repair of incarcerated ventral hernia DISCHARGE MEDICATIONS: See Medication Reconciliation list. DISCHARGE INSTRUCTION Patient was discharged home. Outpatient follow-up with primary care provider. Follow-up with a surgeon as advised. I have been assigned to dictate discharge summary for this account. I was not involved in the patient's management. Shazia Mustafa NP May 09, 2020 09:01
== END 2020-05-07 13:04 | disposition home or self-care (01) | DRG 342 ==
LOC: EMR 01:45 → 3E 03:00 → EDBEDREQ 04:28
PROC: 0DTJ4ZZ Resection of Appendix, Percutaneous Endoscopic Approach (ICD-10-PCS; principal; 2020-05-06 09:30)
PROC: 0WQF0ZZ Repair Abdominal Wall, Open Approach (ICD-10-PCS; principal; 2020-05-06 09:30)
DX: K35.80 Unspecified acute appendicitis (principal); K43.6 Other and unspecified ventral hernia with obstruction, without gangrene; N28.1 Cyst of kidney, acquired
CPT/HCPCS: 36415; 74177; 80048; 80053; 81003; 82248; 83690; 85007; 85025; 85610; 85730; 87086; 94003; 94150; 96365; 96375; 99285; J2710; J7030; U0002